=== PATIENT | male | born 1995 | race Caucasian/White ===

== ENCOUNTER 2019-10-03 13:30 | Emergency (ER) | payer MEDICAID ==
[2019-10-03] MEDS ORDERED: Sodium Chloride 0.9% 1,000 ML IV ONE (14:40)
[2019-10-03] MEDS ORDERED: Ondansetron 4 MG/2 ML SDV IVPUSH ONE (14:40)
[2019-10-03] MEDS ORDERED: Loperamide 2 MG Cap PO ONE (14:40)
[2019-10-03] MEDS ORDERED: Sodium Chloride 0.9% 10 ML Syringe FLUSH PRN (14:40)
--- NOTE | 2019-10-03 14:49 | EDM.PDOC ---
ED HPI GENERAL MEDICAL PROBLEM - General Chief Complaint: Gastrointestinal Problem Stated Complaint: NAUSEA/DIARRHEA Time Seen by Provider: 10/03/19 14:26 Source of Information: Reports: Patient, RN Notes Reviewed History Limitations: Reports: No Limitations - History of Present Illness INITIAL COMMENTS - FREE TEXT/NARRATIVE: Patient is a 24-year-old male who presents to the ED for evaluation of his nausea/diarrhea/shortness of breath. 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 Patient states that he did have a coughing spell at that time , now he states when he takes in deep breaths, he feels some chest discomfort, and a sensation of not being able to catch a deep enough breath. Patient notes that he had 2 episodes of diarrhea last night, and has had 8 watery episodes again today. Patient did note some nausea, and one episode of vomiting after lunch today. Patient states that he did eat the same chicken fajitas yesterday and today, and the symptoms developed afterwards. The patient's boss was worried about COVID-19 and told him that he had to be checked out by a healthcare provider before returning to work. Patient does have a history of anxiety, but no other lung or cardiac history. Upper Chest Pain Score (Numeric/FACES): 5 - Related Data Allergies Allergy/AdvReac Type Severity Reaction Status Date / Time amoxicillin Allergy Other Verified 10/03/19 14:01 Penicillins Allergy Other Verified 10/03/19 14:01 sulfamethoxazole Allergy Other Verified 10/03/19 14:01 [From Bactrim] trimethoprim [From Bactrim] Allergy Other Verified 10/03/19 14:01 Home Meds: Home Meds Escitalopram Oxalate [Lexapro] 10 mg PO DAILY 10/03/19 [History] Lisinopril [Zestril] 20 mg PO DAILY 10/03/19 [History] Ondansetron [Zofran ODT] 4 mg PO Q8H PRN #15 tab.dis 10/03/19 [Rx] traZODone HCl [Trazodone HCl] 100 mg PO BEDTIME 04/14/20 [History] Past Medical History Cardiovascular History: Reports: Hypertension Musculoskeletal History: Reports: Other (See Below) Other Musculoskeletal History: right foot bone spurs Neurological History: Reports: Other (See Below) (insomnia) Psychiatric History: Reports: Anxiety - Past Surgical History GI Surgical History: Reports: Appendectomy Social & Family History - Tobacco Use Smoking Status *Q: Former Smoker Years of Tobacco use: 11 Used Tobacco, but Quit: Yes Month/Year Tobacco Last Used: 1 yr ago - Caffeine Use Caffeine Use: Reports: Tea - Recreational Drug Use Recreational Drug Use: No ED ROS GENERAL - Review of Systems Review Of Systems: See Below Constitutional: Denies: Fever, Chills Respiratory: Reports: Shortness of Breath (feelings of not being able to catch a deep breath, in no distress). Denies: Cough Cardiovascular: Reports: Chest Pain (mild central chest discomfort) GI/Abdominal: Reports: Abdominal Pain (generalized abdomen tenderness), Diarrhea , Nausea, Vomiting : Denies: Dysuria, Frequency, Urgency Neurological: Reports: Dizziness (lightheadedness with standing.) ED EXAM, GI/ABD - Physical Exam Exam: See Below Exam Limited By: No Limitations General Appearance: Alert, WD/WN, No Apparent Distress Eyes: Bilateral: Normal Appearance Ears: Normal External Exam Nose: Normal Inspection Throat/Mouth: Normal Inspection, Normal Lips, Normal Teeth, Normal Gums, Normal Oropharynx, Normal Voice, No Airway Compromise Head: Atraumatic, Normocephalic Neck: Normal Inspection Respiratory/Chest: No Respiratory Distress, Lungs Clear, Normal Breath Sounds, No Accessory Muscle Use, Chest Non-Tender Cardiovascular: Normal Peripheral Pulses, Regular Rate, Rhythm, No Murmur GI/Abdominal Exam: Normal Bowel Sounds, Soft, No Distention, No Mass, Tender ( generalized abdomen tenderness) Extremities: Normal Inspection, Normal Capillary Refill Neurological: Alert, Oriented, Normal Cognition, No Motor/Sensory Deficits Psychiatric: Normal Affect, Normal Mood Skin Exam: Warm, Dry, Intact, Normal Color, No Rash Course - Vital Signs Last Recorded V/S: Last Vital Signs Temp 97.7 F 10/03/19 13:58 Pulse 84 10/03/19 16:18 Resp 18 10/03/19 16:18 BP 129/62 10/03/19 16:18 Pulse Ox 96 10/03/19 16:18 Orthostatic Blood Pressure [ 139/100 Standing] Orthostatic Blood Pressure [ 143/99 Sitting] Orthostatic Blood Pressure [ 126/84 Supine] - Orders/Labs/Meds Orders: Active Orders 24 hr Category Date Time Status Orthostatic Vital Signs [RC] ASDIRECTED Care 10/03/19 14:39 Active Peripheral IV Care [RC] . DIRECTED Care 10/03/19 14:40 Active Peripheral IV Insertion Adult [OM.PC] Routine Oth 10/03/19 14:40 Ordered Labs: Laboratory Tests 10/03/19 10/03/19 Range/Units 14:55 14:55 WBC 15.24 H (4.23-9.07) K/mm3 RBC 6.12 H (4.63-6.08) M/mm3 Hgb 16.9 (13.7-17.5) gm/dl Hct 51.1 H (40.1-51.0) % MCV 83.5 (79.0-92.2) fl MCH 27.6 (25.7-32.2) pg MCHC 33.1 (32.2-35.5) g/dl RDW Std Deviation 40.9 (35.1-43.9) fL Plt Count 303 (163-337) K/mm3 MPV 9.8 (9.4-12.3) fl Neut % (Auto) 82.6 H (34.0-67.9) % Lymph % (Auto) 8.2 L (21.8-53.1) % Storey % (Auto) 6.2 (5.3-12.2) % Eos % (Auto) 2.6 (0.8-7.0) Baso % (Auto) 0.2 (0.1-1.2) % Neut # (Auto) 12.60 H (1.78-5.38) K/mm3 Lymph # (Auto) 1.25 L (1.32-3.57) K/mm3 Storey # (Auto) 0.94 H (0.30-0.82) K/mm3 Eos # (Auto) 0.39 (0.04-0.54) K/mm3 Baso # (Auto) 0.03 (0.01-0.08) K/mm3 Manual Slide Review Abnormal smear Sodium 141 (136-145) mEq/L Potassium 4.2 (3.5-5.1) mEq/L Chloride 101 (98-107) mEq/L Carbon Dioxide 29 (21-32) mEq/L Anion Gap 15.2 H (5-15) BUN 17 (7-18) mg/dL Creatinine 1.1 (0.7-1.3) mg/dL Est Cr Clr Drug Dosing 121.63 mL/min Estimated GFR (MDRD) > 60 (>60) mL/min BUN/Creatinine Ratio 15.5 (14-18) Glucose 85 (74-106) mg/dL Calcium 9.5 (8.5-10.1) mg/dL Total Bilirubin 0.5 (0.2-1.0) mg/dL AST 25 (15-37) U/L ALT 56 (16-63) U/L Alkaline Phosphatase 117 H (46-116) U/L Total Protein 9.0 H (6.4-8.2) g/dl Albumin 4.5 (3.4-5.0) g/dl Globulin 4.5 gm/dL Albumin/Globulin Ratio 1.0 (1-2) Meds: Medications Discontinued Medications Generic Name Dose Route Start Last Admin Trade Name Freq PRN Reason Stop Dose Admin Sodium Chloride 1,000 mls @ 999 mls/hr 10/03/19 14:40 10/03/19 15:02 Normal Saline IV 10/03/19 15:40 999 mls/hr ONETIME ONE Administration Loperamide HCl 4 mg 10/03/19 14:40 10/03/19 15:03 Imodium PO 10/03/19 14:41 4 mg ONETIME ONE Administration Ondansetron HCl 4 mg 10/03/19 14:40 10/03/19 15:02 Zofran IVPUSH 10/03/19 14:41 4 mg ONETIME ONE Administration Sodium Chloride 10 ml 10/03/19 14:40 10/03/19 15:03 Saline Flush FLUSH 10 ml ASDIRECTED PRN Administration Keep Vein Open - Re-Assessments/Exams Free Text/Narrative Re-Assessment/Exam: 10/03/19 14:52 Patient presents to the ED for the evaluation of his nausea/vomiting/diarrhea, and some shortness of breath. I do believe that his respiratory issues stemmed from inhaling some of the chemicals from welding/paint yesterday. I am suspicious that his GI issues might be due to a food poisoning of sorts, as he states he ate the chicken famarthatas both time today and yesterday and developed the symptoms. Have ordered orthostatic vital signs, IV fluids, CBC, CMP, 4 mg Zofran, and 4 mg p.o. loperamide for initial management. 10/03/19 15:56 Patient's laboratory evaluation is back, and demonstrates a modestly elevated white blood cell count at 15.89. His metabolic panel is essentially normal as well. I do believe the elevated white count is due to a stress response in nature. Likely that he had some bad chicken and got food poisoning, will discharge with a prescription of Zofran, and other general recommendations and have him follow-up with regular care provider for further evaluation if needed. Departure - Departure Time of Disposition: 15:57 Disposition: Home, Self-Care 01 Condition: Good Clinical Impression: Food poisoning - Discharge Information *PRESCRIPTION DRUG MONITORING PROGRAM REVIEWED*: No *COPY OF PRESCRIPTION DRUG MONITORING REPORT IN PATIENT DEBBIE: No Prescriptions: Ondansetron [Zofran ODT] 4 mg PO Q8H PRN #15 tab.dis PRN Reason: Nausea Instructions: Diarrhea, Adult, [id number], Food Poisoning, [id number] Referrals: PCP,None [Primary Care Provider] - Forms: ED Department Discharge, ED Return to Work/School Form Additional Instructions: You have been evaluated in the ED for nausea/vomiting/diarrhea. It is likely that this was caused from food poisoning. You have received IV fluid in the ED to help with the dehydration from the vomiting and diarrhea. Over the next 24-48 hours please try to limit diet to clear liquids and advance as tolerate to a bland diet to alleviate symptoms of nausea/vomiting/diarrhea. Please use the Zofran every 8 hours as needed for nausea. Please return to the ED if your symptoms should change or worsen. Sepsis Event Note - Evaluation Sepsis Screening Result: No Definite Risk - Focused Exam Vital Signs: Vital Signs Temp Pulse Resp BP Pulse Ox 10/03/19 16:18 84 18 129/62 96 10/03/19 13:58 97.7 F 84 20 126/82 96 Date Exam was Performed: 10/03/19 Time Exam was Performed: 20:26 - My Orders Last 24 Hours: My Active Orders 10/03/19 14:39 Orthostatic Vital Signs [RC] ASDIRECTED 10/03/19 14:40 Peripheral IV Care [RC] . DIRECTED Peripheral IV Insertion Adult [OM.PC] Routine - Assessment/Plan Last 24 Hours: My Active Orders 10/03/19 14:39 Orthostatic Vital Signs [RC] ASDIRECTED 10/03/19 14:40 Peripheral IV Care [RC] . DIRECTED Peripheral IV Insertion Adult [OM.PC] Routine
== END 2019-10-03 16:18 | disposition home or self-care (01) ==
LOC: JD.ED 13:30
DX: A05.9 Bacterial foodborne intoxication, unspecified (principal); Z88.0 Allergy status to penicillin; Z88.1 Allergy status to other antibiotic agents; Z88.2 Allergy status to sulfonamides
CPT/HCPCS: 36415; 80053; 85025; 96361; 96374; 99284; A9270; J2405; J7030; 99283